=== PATIENT | female | born 1935 | race Asian ===

== ENCOUNTER → 2019-01-06 | Outpatient (CLI) | payer MEDICARE ==
--- NOTE | 2019-01-06 13:59 | Diagnostic Imaging Report ---
EXAMINATION: Renal ultrasound. CLINICAL HISTORY :Renal cyst COMPARISON: <None available.> The report for CT abdomen and pelvis with and without contrast performed 11/22/2016 was reviewed. TECHNIQUE: Grayscale and color Doppler evaluation of the kidneys and bladder was performed in transverse and longitudinal planes. DISCUSSION: RIGHT KIDNEY: The right kidney measures 8.8 cm in length and shows normal echogenicity. Mild prominence of the renal pelvis without overt hydronephrosis, likely related to timing of scan acquisition.. No hydronephrosis, shadowing calculi or solid mass lesions. LEFT KIDNEY: The left kidney measures 10 cm in length and shows normal echogenicity. Stable hyperechoic 0.9 x 0.7 x 0.7 cm lesion in the lower pole. BLADDER: Unremarkable. Right and left ureteral jets are identified. 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 Signed by: Dr. Dae Multani M.D. on 01/06/2019 1:56 PM
--- NOTE | 2019-01-06 14:02 | Diagnostic Imaging Report ---
Exam: Abdominal film Clinical History: Cyst of kidney Comparison: None. DISCUSSION: The bowel gas pattern shows no dilated, air-filled loops of bowel. No abnormal calcifications project over the renal shadows. Multiple pelvic phleboliths. Regional skeletal structures are intact with age-indeterminate compression deformities of L1 and L2.. No mass effect or organomegaly. IMPRESSION: Nonobstructive bowel gas pattern. Signed by: Dr. Dae Multani M.D. on 01/06/2019 1:59 PM
== END ==
LOC: US 12:50
PROVIDERS: ATTEND Urology
DX: N28.1 Cyst of kidney, acquired (principal)
CPT/HCPCS: 74018; 76770